=== PATIENT | female | born 1985 | race Caucasian/White ===

== ENCOUNTER 2017-01-04 10:51 | Emergency (ER) | payer OTHER ==
[~2017-01-04] VITALS: Ht 162.6 cm; Wt 60.1 kg
[~2017-01-04 10:51] MED LIST: GABA600T PO; TRAM-10 PO
[2017-01-04 10:56] VITALS: BP 114/81; PULSE 89; TEMP 36.8; O2SAT 98; Ht 162.6 cm; Wt 60.1 kg
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
[2017-01-04] MEDS ORDERED: HYDR-5688 PO (12:45)
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
== END 2017-01-04 12:52 | disposition home or self-care (01) ==
LOC: C.EDB 10:53 → C.EDD 12:52
DX: M25.511 Pain in right shoulder (principal); M25.521 Pain in right elbow; M25.551 Pain in right hip; V86.69XA Passenger of other special all-terrain or other off-road motor vehicle injured in nontraffic accident, initial encounter; Y92.89 Other specified places as the place of occurrence of the external cause; J45.909 Unspecified asthma, uncomplicated; Z79.899 Other long term (current) drug therapy; Z72.0 Tobacco use

== ENCOUNTER → 2017-07-25 | Outpatient (CLI) | payer SELFPAY | END | disposition home or self-care (01) | LOC: C.PAPS 08:16 | PROVIDERS: ATTEND Physician Assistant Medical | DX: Z12.4 Encounter for screening for malignant neoplasm of cervix (principal) ==